=== PATIENT | female | born 1950 | race Caucasian/White ===

== ENCOUNTER 2018-05-28 23:17 | Emergency (ER) | payer MEDICARE, OTHER ==
[~2018-05-28 23:17] MED LIST: Iopamidol 370 76% 100 ML VIAL ONE
[2018-05-28] MEDS ORDERED: Ondansetron HCl/PF 4 MG/2 ML Vial ONE (23:46)
[2018-05-28 23:56] LABS: #Basophils 0.1 thou/uL (0.0-0.2); #Lymphocytes 0.8 thou/uL (1.20-3.40); #Monocytes 0.6 thou/uL (0.11-0.59); #Neutrophils 14.3 thou/uL (1.40-6.50); %Basophils 0.4 % (0.0-1.0); %Eosinophils 0.1 % (0.0-10.0); %Lymphocytes 5.1 % (21.0-51.0); %Monocytes 3.8 % (0.0-10.0); %Neutrophils 90.7 % (42.0-75.0); Hemoglobin 13.5 g/dL (12.0-16.0); Mean Corpuscular HGB CONC 36.3 g/dL (32.0-36.0); Mean Corpuscular Hemoglobin 28.4 pg (27.0-31.0); Mean Corpuscular Volume 78.1 fL (78.0-98.0); Mean Platelet Volume 8.7 fL (7.4-10.4); Platelet Count 165 thou/uL (130-400); RBC Distribution Width 11.5 % (11.5-14.5); Red Blood Cell (RBC) Count 4.77 mill/uL (4.20-5.40); White Blood Cell (WBC) Count 15.8 thou/uL (4.8-10.8)
[2018-05-28 23:59] LABS: Bilirubin Negative (Negative); Blood, Urine Negative (Negative); Clarity Slightly Cloudy (Clear); Glucose, Urine (Dipstick) 100 mg/dL (Negative); Leukocyte Negative (Negative); Nitrite Negative (Negative); Protein, Urine (Dipstick) 30 mg/dL (Neg-Trace); Specific Gravity, Urine 1.025 (1.005-1.030); Urobilinogen 0.2 mg/dL (0.2-1.0); pH, Urine 5.5 (5.0-9.0)
[2018-05-29 00:03] LABS: Bacteria/HPF Rare-Few HPF (None Seen); Other Microscopic Description 3+ MUCUS; RBC/HPF None Seen HPF (0-3); Squamous Epithelial 0-3 HPF (0-3); WBC/HPF 0-3 HPF (0-3)
[2018-05-29 00:11] LABS: ALT (SGPT) 18 U/L (8-55); AST (SGOT) 18 U/L (5-34); Albumin 4.8 g/dL (3.4-4.8); Alkaline Phosphatase 78 U/L (40-150); Anion Gap 17 mmol/L (10-20); BUN (Urea Nitrogen) 15 mg/dL (9.8-20.1); Bilirubin, Total 2.7 mg/dL (0.2-1.2); Calc. Creatinine Clearance 0 mL/min (70-130); Carbon Dioxide 22 mmol/L (23-31); Chloride 105 mmol/L (98-107); Estimated GFR-MDRD 78; Globulin 3.2 g/dL (2.4-3.5); Glucose 165 mg/dL (80-115); Lipase 10 U/L (8-78); Potassium 3.3 mmol/L (3.5-5.1); Sodium 141 mmol/L (136-145)
[2018-05-29] MEDS ORDERED: Fentanyl 100 MCG/2 ML VIAL ONE (00:20)
[2018-05-29] MEDS ORDERED: Piperacillin/Tazobactam 3.375 GM VIAL ONE (01:10)
[2018-05-29] MEDS ORDERED: Sodium Chloride 0.9% 100 ML ONE (01:10)
--- NOTE | 2018-05-29 09:07 | CT ---
PRELIMINARY REPORT/[facility]/EMERGENTY AFTER-HOURS PROCEDURE Addendum created by Alvin Rankin MD on 05/29/2018 1:04 AM Central Time ([place] & [place]) Findings were discu ssed with STEPHANIE MATIAS at 05/29/2018 1:04 AM CDT. Initial Report created on 05/29/2018 1:03 AM Central Time ([place] & [place]) CT Abdomen and Pelvis With Intravenous Contrast CLINICAL HISTORY: 67 years old, female; Pain; Abdominal pain; Localized; Right lower quadrant (rlq); Prior surgery; Cr elen date: 6+ months; Surgery type: Hyster TECHNIQUE: Axial computed tomography images of the abdomen and pelvis with intravenous contrast. All CT scans at this facility use at least one of these dose optimization techniques: automated exposure control; mA and/or kV adjustment per patient size (includes targeted exams where dose is matched to clinical ind ication); or iterative reconstruction. CONTRAST: 100 ml of ISOVUE 370 administered intravenously. COMPARISON: No relevant prior studies available. FINDINGS: Lower thorax: There is minimal bibasilar atelectatic change or scarring. There are calcified granulom cesia at the lung bases. ABDOMEN: Liver: There is hepatomegaly. Gallbladder and bile ducts: Normal. No calcified stones. No ductal dilation. Pancreas: Normal. No ductal dilation. Spleen: There are calcified splenic granulomata. Adrenals: Normal. No mass. Kidneys and ureters: Normal. No hydronephrosis. Stomach and bowel: There is likely contiguous inflammation involving the cecal tip versus primary col itis cannot be excluded. There is colonic diverticulosis without evidence for acute diverticulitis. Appendix: The appendix is abnormally dilated measuring 11 mm diameter, fluid filled with abnormal wal l thickening and enhancement and periappendiceal fat stranding consistent with acute appendicitis wit hout signs of perforation. The appendix is seen best on axial image 63 and coronal image 38. PELVIS: Bladder: Unremarkable as visualized. Reproductive: There are postoperative changes of hysterectomy. ABDOMEN and PELVIS: Intraperitoneal space: There is trace free fluid in the pelvis. Bones/joints: No acute fracture. No dislocation. Soft tissues: In there is a small fat filled umbilical hernia without signs of incarceration. Vasculature: Normal. No abdominal aortic aneurysm. Lymph nodes: Normal. No enlarged lymph nodes. IMPRESSION: 1. The appendix is abnormally dilated measuring 11 mm diameter, fluid filled with abnormal wall thick ening and enhancement and periappendiceal fat stranding consistent with acute appendicitis without si gns of perforation. 2. There is likely contiguous inflammation involving the cecal tip versus primary colitis cannot be e xcluded. 3. There is colonic diverticulosis without evidence for acute diverticulitis. Thank you for allowing us to participate in the care of your patient. Dictated and Authenticated by: Alvin Rankin MD 05/29/2018 1:03 AM Central Time ([place] & [place]) FINAL REPORT CT ABDOMEN AND PELVIS WITH IV CONTRAST: Date: 05/28/18 FINDINGS/IMPRESSION: I agree with the preliminary report given by [place]. POS: [facility]
== END 2018-05-29 01:36 | disposition short-term general hospital (02) ==
LOC: BURERS 23:17
DX: K35.80 Unspecified acute appendicitis (principal); E78.5 Hyperlipidemia, unspecified; Z79.899 Other long term (current) drug therapy
CPT/HCPCS: 74177; 80053; 81003; 81015; 83690; 85025; 94760; 96361; 96374; 96375; A4216; J2405; J2543; J3010; J7050

== ENCOUNTER 2021-01-17 16:22 | Outpatient (CLI) | payer MEDICARE, OTHER ==
--- NOTE | 2021-01-17 17:38 | RAD ---
LEFT HIP TWO VIEWS: Date: 01-17-2021 FINDINGS: There is a fracture through the superior pubic ramus on the left side. I cannot confirm an inferior r amus fracture at the moment. The proximal femur appears intact and the hip joint is normal in width. The visible portions of the sacrum and left SI joint were unremarkable. IMPRESSION: Fracture of the left superior pubic ramus. POS: HOME
--- NOTE | 2021-01-17 17:40 | RAD ---
PELVIS ONE VIEW: Date: 01-17-2021 FINDINGS: There is a fracture of the left superior pubic ramus with slight displacement. The remainder of the b ambar pelvis appears intact. No fractures were seen involving the sacrum and the SI joints appear herminio l. The hip joints are symmetrical. IMPRESSION: Fracture of the left superior pubic ramus. Some of the fracture line extends into the body of the pub is. A very faint line through the inferior pubic ramus may be the remnant of a synchondrosis. POS: HOME
== END 2021-01-17 16:23 | disposition home or self-care (01) ==
LOC: BURRAD 16:22
PROVIDERS: ATTEND Family Medicine
DX: M25.552 Pain in left hip (principal); S32.592A Other specified fracture of left pubis, initial encounter for closed fracture
CPT/HCPCS: 72170